=== PATIENT | male | born 1965 | race Caucasian/White ===

== ENCOUNTER 2020-05-13 16:47 | Emergency (ER) | payer MEDICARE, MEDICAID, SELFPAY ==
[2020-05-13 16:50] VITALS: PULSE 103; RESP 20; TEMP 36.9; O2SAT 97
[2020-05-13 17:01] VITALS: BP 132/74; PULSE 98; PULSE 99; RESP 18; O2SAT 96
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
[2020-05-13] MEDS: HYDROcodone-acetaminophen 7.5-325 mg Tablet 1 TAB PO (17:42)
[2020-05-13 19:26] VITALS: BP 135/64; PULSE 86; RESP 18; O2SAT 97
== END 2020-05-13 19:27 | disposition home or self-care (01) ==
PROVIDERS: Emergency Provider Physician Assistant; PCP Registered Nurse
DX: S16.1XXA Strain of muscle, fascia and tendon at neck level, initial encounter (principal); Z79.82 Long term (current) use of aspirin; Y04.8XXA Assault by other bodily force, initial encounter
CPT/HCPCS: 12345; 72125; 99281; 99283

== ENCOUNTER 2021-08-22 09:46 | Emergency (ER) | payer MEDICARE, MEDICAID, SELFPAY ==
--- NOTE | 2021-08-22 09:52 | W.ED.CHESTPA ---
HPI - Chest Pain General: Chief Complaint: Chest Pain Stated Complaint: CHEST PAIN Time Seen by Provider: 08/22/21 09:52 Source: patient Mode of arrival: ambulatory History of Present Illness: 56-year-old male presents emergency room complaining of chest pain. Pain is reproducible and patient takes a deep breath or coughs or uses his left arm to push himself such as when he sits from lying down. He has not had any fever sweats chills is not having productive cough no shortness of breath. MD complaint: chest pain Onset (ago): day(s) (5) Timing of current episode: episodic Onset: other (coughing) Pain location: left chest Pain radiation: none Severity: mild Quality: sharp Relieving factors: nothing Exacerbating factors: other (Pain is worse when he pushes with his left arm) Associated symptoms: Deny abdominal pain, diaphoresis, dyspnea, fever(s), leg edema, nausea, palpitations, sense of impending doom, syncope or vomiting Treatment prior to arrival: none Risk Factors: Coronary artery disease risk factors: smoking history Review of Systems Const: Denies: fever(s), chills, body aches or diaphoresis ENMT: Denies: throat pain, ear or mastoid pain, nasal discharge or nasal congestion Card: Reports: chest pain; Denies: palpitations, irregular heart rhythm, edema or syncope Resp: Denies: dyspnea or productive cough GI: Denies: abdominal pain, nausea or vomiting : Denies: flank pain, difficulty urinating, dysuria, urinary frequency or urinary urgency Musc: Denies: neck pain Skin/Breast: Denies: rash or pruritus PFS ED PFSH: Medical History (Updated 08/22/21 @ 12:23 by Shan Teixeira DO) No pertinent past medical history Surgical History (Updated 08/22/21 @ 12:23 by Shan Teixeira DO) No pertinent past surgical history Social History (Updated 08/22/21 @ 12:24 by Shan Teixeira DO) Smoking and tobacco status: former smoker Physical Exam Const: COMMON NORMALS: no acute distress GENERAL APPEARANCE: cooperative and comfortable ORIENTATION/CONSCIOUSNESS: Yes awake, Yes oriented to person, Yes oriented to place and Yes oriented to time HENMT: COMMON NORMALS: normocephalic, atraumatic and hearing grossly normal bilaterally HEAD & SCALP: normocephalic and atraumatic Neck/C-Spine: COMMON NORMALS: no JVD Resp: COMMON NORMALS: normal respiratory effort, No retractions, No use of accessory muscles and clear to auscultation bilaterally AUSCULTATION: clear to auscultation bilaterally Cardio: COMMON NORMALS: no JVD, regular rate, regular rhythm and No murmurs present (Cardio) RATE: regular rate RHYTHM: regular rhythm GI: COMMON NORMALS: Soft to palpation and No hepatosplenomegaly present AUSCULTATION: Yes normoactive bowel sounds PALPATION: Yes Soft to palpation, No Tenderness to palpation present (GI), No Guarding due to palpation present (GI) and Yes No hepatosplenomegaly present Extremity: COMMON NORMALS: normal to inspection, capillary refill normal, no clubbing, cyanosis or edema, no calf tenderness and no pedal edema Neuro: SENSORIUM/ORIENTATION: Yes oriented to person, Yes oriented to place and Yes oriented to time Skin: COMMON NORMALS: no rashes or lesions noted GENERAL SKIN EXAM: no rashes or lesions noted Course Vital Signs: Vital signs: Vital Signs Temperature 98.2 F 08/22/21 10:23 Pulse Rate 67 08/22/21 11:26 Respiratory Rate 16 08/22/21 10:23 Blood Pressure 137/94 08/22/21 11:26 Pulse Oximetry 97 08/22/21 11:26 MDM - Chest Pain Medical Decision Making EKG shows no acute ST and T changes. Patient symptoms for 5 days troponin is normal pain is reproducible noncardiac characteristic by history. [place] discharge him home set him up for outpatient follow-up stress test return if has problems. Medical Records I reviewed the patient's medical records. Lab Data I reviewed the patient's lab results. : 08/22/21 10:22 08/22/21 10:22 Radiology Impressions Chest X-Ray 08/22/21 09:53 Impression: Negative chest. Laboratory Results WBC 9.0 10^3/uL (4.0-10.0) 08/22/21 10:22 RBC 5.02 10^6/uL (4.1-5.3) 08/22/21 10:22 Hgb 15.9 g/dL (11.7-16.6) 08/22/21 10: Hct 47.4 % (42.0-52.0) 08/22/21 10:22 MCV 94.4 fl (80-94) H 08/22/21 10:22 MCH 31.7 pg (28.0-34.0) 08/22/21 10: MCHC 33.5 g/dL (30.0-36.0) 08/22/21 10: RDW 12.9 % (12.1-15.1) 08/22/21 10:22 Plt Count 230 10^3/cmm (130-400) 08/22/21 10:22 MPV 10.1 fL (7.4-10.4) 08/22/21 10: Neut % (Auto) 71.6 % 08/22/21 10: Lymph % (Auto) 22.5 % 08/22/21 10: [place] % (Auto) 4.7 % 08/22/21 10:22 Eos % (Auto) 0.8 % 08/22/21 10: Baso % (Auto) 0.2 % 08/22/21 10:22 Neut # (Auto) 6.42 10^3/uL (1.8-7.7) 08/22/21 10:22 Lymph # (Auto) 2.0 10^3/uL (0.8-4.8) 08/22/21 10: [place] # (Auto) 0.4 10^3/uL (0.2-0.9) 08/22/21 10: Eos # (Auto) 0.1 10^3/uL (0.0-0.8) 08/22/21 10:22 Baso # (Auto) 0.0 10^3/uL (0.0-0.1) 08/22/21 10:22 Nucleated RBC % (auto) 0 % 08/22/21 10: Nucleated RBCs # 0.0 /100WBC 08/22/21 10:22 Sodium 137 mmol/L (136-145) 08/22/21 10:22 Potassium 4.3 mmol/L (3.5-5.1) 08/22/21 10: Chloride 100 mmol/L (98-107) 08/22/21 10: Carbon Dioxide 26 mmol/L (22-29) 08/22/21 10:22 Anion Gap 15.3 (5-19) 08/22/21 10:22 BUN 14 mg/dL (6-20) 08/22/21 10:22 Creatinine 0.8 mg/dL (0.7-1.2) 08/22/21 10:22 GFR Calculation 100.7 mL/min (90-130) 08/22/21 10:22 Glucose 119 mg/dL (65-115) H 08/22/21 10:22 Calculated Osmolality 286 mOsm/kg (285-295) 08/22/21 10:22 Calcium 8.9 mg/dL (8.5-10.5) 08/22/21 10: Total Bilirubin 0.2 mg/dL (0.15-1.2) 08/22/21 10: AST 15 U/L (0-40) 08/22/21 10: ALT 14 U/L (0-41) 08/22/21 10:22 Alkaline Phosphatase 121 IU/L (40-130) 08/22/21 10:22 Troponin T Baseline 6 ng/L (0-15) 08/22/21 10:22 Total Protein 7.3 g/dL (6.6-8.7) 08/22/21 10: Albumin 4.2 g/dL (3.5-5.2) 08/22/21 10: Globulin 3.1 g/dL (1.3-4.6) 08/22/21 10:22 Discharge Plan Discharge Clinical Impression: Acute chest wall pain Prescriptions: No Action cyclobenzaprine 10 mg tablet 10 mg PO TID PRN (Reason: muscle spasms) 0RF venlafaxine 75 mg capsule,extended release 24hr 225 mg PO DAILY@1800 0RF gabapentin 600 mg tablet 600 mg PO TID@0900,1200,1800 0RF aspirin 325 mg Tablet 650 mg PO Q4H PRN (Reason: Pain) 0RF ibuprofen 800 mg tablet 800 mg PO Q6H PRN (Reason: Pain) 0RF quetiapine 200 mg tablet 400 mg PO DAILY@0000 0RF ibuprofen 800 mg tablet 800 mg PO Q8H PRN (Reason: pain) Qty: 20 0RF methocarbamol 750 mg tablet 750 mg PO Q8H Qty: 20 0RF Discharge Orders: Discharge ED (Routine); Ordered 08/22/21 Ordered By: Shan Teixeira Referrals: Gris Fuentes FNP [Referring] - Discharge Diet: Usual diet Discharge Activity: Increase activity as tolerated Patient Instructions: Opioid Safety Activity Restrictions/Additional Instructions: Case management will call make arrangements for you to have follow-up stress test as an outpatient. Continue aspirin daily. Coding Level of Care Code ED Neonatal Icu Coordinator for Letty Peña
--- NOTE | 2021-08-22 09:53 | XR_ITS ---
WS: [id number] Portable AP upright chest, 08/22/2021 Clinical Data: dyspnea/cough Comparison: Portable chest, 05/26/2016. Findings: No nodules, masses or effusions are seen. The heart is normal. The pulmonary vascularity is not increased. No pneumonia or pneumothorax is seen. The distal right clavicle is absent. XR/XR chest 1V portable [id number] Impression: Negative chest.
--- NOTE | 2021-08-22 09:53 | ECG_ITS ---
[facility] Test Date: 2021-08-22 Pat Name: Hosea Lynne Department: Room: Gender: Male Loom Blower: : 1965 Requested By: Shan Hutchinson Order Number: [id number] Claribel MD: Tk Galdamez M.D. Measurements Intervals [place] Rate: 62 P: 58 TN: 172 QRS: 9 QRSD: 92 T: 47 QT: 373 QTc: 379 Interpretive Statements SINUS RHYTHM SEPTAL MYOCARDIAL INFARCTION , OF INDETERMINATE AGE [40+ ms Q WAVE IN V1/V2] No previous ECG available for comparison Electronically Signed On 08-22-2021 22:06:14 CDT by Tk Galdamez M.D. [id number]
[2021-08-22 09:55] VITALS: BP 137/82; PULSE 69; RESP 16; TEMP 36.8; O2SAT 96; BMI 23.6
[2021-08-22 10:23] VITALS: BP 137/82; PULSE 69; RESP 16; TEMP 36.8; O2SAT 96
[2021-08-22 10:34] LABS: Basophils % 0.2 %; Eosinophils # 0.1 10^3/uL (0.0-0.8); Eosinophils % 0.8 %; Hematocrit 47.4 % (42.0-52.0); Hemoglobin 15.9 g/dL (11.7-16.6); Lymphocytes % 22.5 %; Mean Corpuscular HGB Conc 33.5 g/dL (30.0-36.0); Mean Corpuscular Hemoglobin 31.7 pg (28.0-34.0); Mean Corpuscular Volume 94.4 fl (80-94); Mean Platelet Volume 10.1 fL (7.4-10.4); Monocytes # 0.4 10^3/uL (0.2-0.9); Monocytes % 4.7 %; Neutrophils # 6.42 10^3/uL (1.8-7.7); Neutrophils % 71.6 %; Nucleated Red Blood Cells % 0 %; Platelet Count 230 10^3/cmm (130-400); Red Blood Count 5.02 10^6/uL (4.1-5.3); Red Cell Distribution Width 12.9 % (12.1-15.1)
[2021-08-22 10:49] LABS: Troponin(5th) Baseline 6 ng/L (0-15)
[2021-08-22 10:51] LABS: Alanine Aminotransferase 14 U/L (0-41); Albumin Level 4.2 g/dL (3.5-5.2); Alkaline Phosphatase 121 IU/L (40-130); Anion Gap 15.3 (5-19); Aspartate Amino Transferase 15 U/L (0-40); Blood Urea Nitrogen 14 mg/dL (6-20); Calcium 8.9 mg/dL (8.5-10.5); Carbon Dioxide 26 mmol/L (22-29); Chloride 100 mmol/L (98-107); Globulin 3.1 g/dL (1.3-4.6); Glomerular Filtration Rate 100.7 mL/min (90-130); Glucose 119 mg/dL (65-115); Osmolality Calculated 286 mOsm/kg (285-295); Potassium 4.3 mmol/L (3.5-5.1); Sodium 137 mmol/L (136-145); Total Bilirubin 0.2 mg/dL (0.15-1.2); Total Protein 7.3 g/dL (6.6-8.7)
[2021-08-22 11:26] VITALS: BP 137/94; PULSE 67; O2SAT 97
== END 2021-08-22 11:28 | disposition home or self-care (01) ==
PROVIDERS: Emergency Provider Family Medicine
DX: R07.89 Other chest pain (principal)
CPT/HCPCS: 71045; 80053; 84484; 85025; 93005; 99283

== ENCOUNTER 2021-09-29 11:22 | Emergency (ER) | payer MEDICARE, MEDICAID, SELFPAY ==
[2021-09-29 11:27] VITALS: BP 131/80; PULSE 80; RESP 14; TEMP 36.7; O2SAT 98; BMI 23.6
--- NOTE | 2021-09-29 11:46 | XRR_ITS ---
PROCEDURE INFORMATION: Exam: XR Left Elbow Exam date and time: 09/29/2021 11:55 AM Age: 56 years old Clinical indication: Injury or trauma; Other: Mirror fell on elbow; Laceration; Left; Injury date: 09/28/21; Injury details: Had a glass mirror fall onto elbow last pm; Additional info: Laceration/glass TECHNIQUE: Imaging protocol: XR Left elbow. Views: 3 or more views. Total images: 3 COMPARISON: No relevant prior studies available. FINDINGS: Bones/joints: Normal. Soft tissues: Normal. XR/XR elbow LT min 3V* [id number] IMPRESSION: No acute findings.
--- NOTE | 2021-09-29 11:47 | ED_ITS ---
HPI - Wound/Laceration General: Chief Complaint: Extremity Injury, Upper Stated Complaint: injury to left arm Time Seen by Provider: 09/29/21 11:26 Source: patient Mode of arrival: ambulatory Limitations: no limitations History of Present Illness: Patient is a nice 56-year-old male who presents to ED today with a complaint of a laceration to his left forearm/elbow region. Patient states he was moving a heavy mirrored cabinet yesterday when one of the mirrored shelves fell and landed onto his left arm and lacerated it. Patient denies numbness, tingling, loss of sensation. He states the glass did break but has a low suspicion for retained glass foreign bodies. Tetanus is UTD. Onset (ago): hour(s) Extremity Location: Left: elbow Place: home Patient tetanus UTD: Yes Context: accidental Associated symptoms: Reports no associated symptoms Review of Systems Musc: Reports: extremity pain (L arm/elbow laceration); Denies: extremity swelling, joint pain, joint swelling, joint redness, joint warmth or limited range of motion Skin/Breast: Reports: other (laceration) Neuro: Denies: numbness in extremities or sensory changes [facility] ED PFSH: Medical History (Updated 09/29/21 @ 12:19 by TATO Goss) No pertinent past medical history Surgical History (Updated 08/22/21 @ 12:23 by Shan Teixeira DO) No pertinent past surgical history Social History (Updated 08/22/21 @ 12:24 by Shan Teixeira DO) Smoking and tobacco status: former smoker Physical Exam Const: COMMON NORMALS: no acute distress, patient oriented x3, no limitations, alert and well nourished Extremity: COMMON NORMALS: full ROM, capillary refill normal, no joint enlargement, no clubbing, cyanosis or edema and no pedal edema GENERAL: Yes normal exam except as noted LEFT UPPER EXTREMITY: Yes elbow joint (2cm laceration overlying volar L elbow; no swelling/bleeding) Left elbow: Yes ROM (normal) and Yes neurovascular exam (normal) Neuro: COMMON NORMALS: patient oriented x3, moves all extremities, no focal motor deficits and no sensory deficits noted SENSORIUM/ORIENTATION: Yes alert Skin: NARRATIVE SKIN EXAM: see extremity exam-otherwise normal skin exam Procedures Laceration Laceration 1: Site: upper extremity Side (If applicable): left Size (cm): 2.0 Description: linear Depth: simple, single layer Local Anesthetic: lidocaine 1% and with epi Amount of anesthesia used (mL): 3.0 Pre-repair: wound explored and irrigated extensively Skin layer closed with: nylon Size (cm): 4-0 Number of sutures: 2 Technique: simple, interrupted Course Vital Signs: Vital signs: Vital Signs Temperature 98.0 F 09/29/21 11:27 Pulse Rate 80 09/29/21 11:27 Respiratory Rate 14 09/29/21 11:27 Blood Pressure 131/80 09/29/21 11:27 Pulse Oximetry 98 09/29/21 11:27 MDM - Wound/Laceration Medical Decision Making XR negative for fbs. Wound repaired as documented. No evidence of nerve or vascular compromise. Laceration/wound care discussed at home including return to ED precautions. Lab Data Radiology Impressions Elbow X-Ray 09/29/21 11:46 IMPRESSION: No acute findings. Discharge Plan Discharge Patient Disposition: Home Clinical Impression: Laceration of left forearm Qualifiers: Encounter type: initial encounter Qualified Code(s): S51.812A - Laceration without foreign body of left forearm, initial encounter Condition: Stable Prescriptions: No Action cyclobenzaprine 10 mg tablet 10 mg PO TID PRN (Reason: muscle spasms) 0RF venlafaxine 75 mg capsule,extended release 24hr 225 mg PO DAILY@1800 0RF gabapentin 600 mg tablet 600 mg PO TID@0900,1200,1800 0RF aspirin 325 mg Tablet 650 mg PO Q4H PRN (Reason: Pain) 0RF ibuprofen 800 mg tablet 800 mg PO Q6H PRN (Reason: Pain) 0RF quetiapine 200 mg tablet 400 mg PO DAILY@0000 0RF ibuprofen 800 mg tablet 800 mg PO Q8H PRN (Reason: pain) Qty: 20 0RF methocarbamol 750 mg tablet 750 mg PO Q8H Qty: 20 0RF Discharge Orders: Discharge ED (Routine); Ordered 09/29/21 Ordered By: Lizzy Tomas Patient Instructions: Care For Your Stitches (DC), Laceration (DC) Activity Restrictions/Additional Instructions: Keep wound/laceration clean with warm soap and water twice daily. Monitor for signs of infection such as redness, swelling, increased pain, or drainage. Please seek medical re-evaluation if these occur. If you received sutures today these will need to be removed (unless you were told by the provider that they are absorbable). The provider should have discussed with you the length of time until removal-7 DAYS. You may return to the emergency department for this service. Coding Level of Care Code ED Fbi Sharpshooter for Letty Peña
== END 2021-09-29 12:34 | disposition home or self-care (01) ==
PROVIDERS: Emergency Provider Physician Assistant
DX: S51.812A Laceration without foreign body of left forearm, initial encounter (principal); W20.8XXA Other cause of strike by thrown, projected or falling object, initial encounter
CPT/HCPCS: 12001; 73080

== ENCOUNTER 2021-12-02 15:22 | Inpatient (IN) | payer MEDICARE, MEDICAID, SELFPAY ==
[2021-12-02 15:25] VITALS: BP 138/89; PULSE 78; RESP 16; TEMP 36.4; O2SAT 96
--- NOTE | 2021-12-02 15:36 | W.ED.ABDPA2 ---
Documented by User: TATO Willams 12/03/21 00:01 HPI - Abdominal Pain General: Chief Complaint: Abdominal Pain Stated Complaint: R flank pain Time Seen by Provider: 12/02/21 15:31 History of Present Illness: Patient is a 56-year-old male comes to the ED with right flank pain. Patient endorses having chronic right flank pain for the past 6 years. Over the past 2 weeks the pain has progressed and gotten more severe. He currently rates the pain a 5 out of 10. Denies any worsening or improving factors. Denies any history of kidney stones. Denies any fever, chills, nausea/vomiting, bladder or bowel symptoms. Patient does endorse having dark urine and feels dehydrated. Patient has a past medical history of bipolar disorder but is not currently taking any of his meds. He told the nurse that he is currently suicidal and wants to hurt himself. He stated that he does not want to live anymore. he is paranoid about police and one of his neighbors and states that his neighbor is out to get him. Associated Symptoms: Denies chills, constipation, diarrhea, dysuria, fever(s), hematochezia, hematuria, nausea and vomiting Review of Systems Const: Denies: fever(s), chills or fatigue Eyes: Denies: change in vision or eye discomfort ENMT: Denies: throat pain, odynophagia, nasal discharge or nasal congestion Card: Denies: chest pain, palpitations, edema, swelling of feet/ankles, dyspnea on exertion or orthopnea Resp: Denies: dyspnea, productive cough or non-productive cough GI: Denies: abdominal pain, nausea, vomiting, diarrhea, constipation or hematochezia : Reports: flank pain (Right flank); Denies: difficulty urinating, dysuria or hematuria Musc: Denies: neck pain, back pain or extremity swelling Skin/Breast: Denies: rash or new lesions Neuro: Denies: headache(s), numbness in extremities or weakness in extremities PFS ED PFSH: Medical History No pertinent past medical history Surgical History No pertinent past surgical history Social History Smoking and tobacco status: former smoker Physical Exam Const: COMMON NORMALS: patient oriented x3 and alert GENERAL APPEARANCE: cooperative HENMT: COMMON NORMALS: normocephalic HEAD & SCALP: normocephalic MOUTH: Normal oral and palatal mucosa present THROAT: posterior oropharynx normal and uvula midline Neck/C-Spine: COMMON NORMALS: supple GENERAL: Yes normal visual inspection Resp: COMMON NORMALS: normal respiratory effort, No retractions, No use of accessory muscles and clear to auscultation bilaterally AUSCULTATION: clear to auscultation bilaterally Cardio: COMMON NORMALS: regular rate, regular rhythm, S1 normal heart sound present, S2 normal heart sound present, No gallops present (Cardio), No clicks present (Cardio), No murmurs present (Cardio) and Peripheral pulses 2+ throughout RATE: regular rate RHYTHM: regular rhythm HEART SOUNDS: S1 normal heart sound present and S2 normal heart sound present PERIPHERAL PULSES: Peripheral pulses 2+ throughout GI: COMMON NORMALS: Normal to inspection, nondistended, normoactive bowel sounds present, Soft to palpation, non-tender and no masses PALPATION: Yes Soft to palpation and Yes Tenderness to palpation present (GI) Details: RUQ : BLADDER/KIDNEY EXAM: Yes CVA tenderness on the right Back/Pelvis: GENERAL BACK: Yes CVA tenderness Extremity: COMMON NORMALS: normal to inspection Neuro: COMMON NORMALS: patient oriented x3 SENSORIUM/ORIENTATION: Yes alert GAIT: Yes Normal gait present Skin: GENERAL SKIN EXAM: dry skin Course ED course: Patient mentioned that he did not want to live anymore to nurse and he was then moved into his own room here in the ED and patient primary care nurse practitioner was monitoring patient. Vital Signs: Vital signs: Vital Signs Temperature 98.2 F 12/12/21 13:05 Pulse Rate 69 12/12/21 13:05 Respiratory Rate 16 12/12/21 13:05 Blood Pressure 119/78 12/12/21 13:05 Pulse Oximetry 97 12/12/21 13:05 Oxygen Delivery Me thod 12/12/21 06:00 MDM - Abdominal Pain Medical Decision Making Patient is a 56-year-old male comes to the ED originally for right flank and right-sided abdominal pain. CBC, CMP and UA were all unremarkable. CT of abdomen pelvis and no acute findings were noted. While here in the ED patient said that he was having thoughts of suicide and said he did not want to live anymore. Patient has a history of bipolar disorder and is not currently taking any of his medications. He also reports pain paranoid about one of his neighbors and the local police. Psych screening labs were performed and I contacted Dr. Beckham and told him about patient case and he agreed to have patient admitted to the [facility]. Dr. Mcclain was notified and placed the admitting orders. Lab Data I reviewed the patient's lab results. : 12/02/21 16:00 12/02/21 16:00 Labs/Radiology: Radiology Impressions Abdomen/Pelvis CT 12/02/21 17:49 IMPRESSION: 1. Limited noncontrast examination. 2. Mild circumferential urinary bladder wall thickening, possibly secondary to underdistention. Correlate with urinalysis to exclude cystitis. 3. Additional findings, as above. Laboratory Results WBC 8.4 10^3/uL (4.0-10.0) 12/02/21 16:00 RBC 4.87 10^6/uL (4.1-5.3) 12/02/21 16:00 Hgb 15.7 g/dL (11.7-16.6) 12/02/21 16:00 Hct 46.9 % (42.0-52.0) 12/02/21 16:00 MCV 96.3 fl (80-94) H 12/02/21 16:00 MCH 32.2 pg (28.0-34.0) 12/02/21 16:00 MCHC 33.5 g/dL (30.0-36.0) 12/02/21 16:00 RDW 13.4 % (12.1-15.1) 12/02/21 16:00 Plt Count 249 10^3/cmm (130-400) 12/02/21 16:00 MPV 9.9 fL (7.4-10.4) 12/02/21 16:00 Neut % (Auto) 64.6 % 12/02/21 16:00 Lymph % (Auto) 26.8 % 12/02/21 16:00 [place] % (Auto) 7.0 % 12/02/21 16:00 Eos % (Auto) 1.3 % 12/02/21 16:00 Baso % (Auto) 0.2 % 12/02/21 16:00 Neut # (Auto) 5.45 10^3/uL (1.8-7.7) 12/02/21 16:00 Lymph # (Auto) 2.3 10^3/uL (0.8-4.8) 12/02/21 16:00 [place] # (Auto) 0.6 10^3/uL (0.2-0.9) 12/02/21 16:00 Eos # (Auto) 0.1 10^3/uL (0.0-0.8) 12/02/21 16:00 Baso # (Auto) 0.0 10^3/uL (0.0-0.1) 12/02/21 16:00 Nucleated RBC % (auto) 0 % 12/02/21 16:00 Nucleated RBCs # 0.0 /100WBC 12/02/21 16:00 Sodium 139 mmol/L (136-145) 12/02/21 16:00 Potassium 4.3 mmol/L (3.5-5.1) 12/02/21 16:00 Chloride 103 mmol/L (98-107) 12/02/21 16:00 Carbon Dioxide 27 mmol/L (22-29) 12/02/21 16:00 Anion Gap 13.3 (5-19) 12/02/21 16:00 BUN 9 mg/dL (6-20) 12/02/21 16:00 Creatinine 0.7 mg/dL (0.7-1.2) 12/02/21 16:00 GFR Calculation 117.5 mL/min (90-130) 12/02/21 16:00 Glucose 95 mg/dL (65-115) 12/02/21 16:00 Calculated Osmolality 286 mOsm/kg (285-295) 12/02/21 16:00 Calcium 9.5 mg/dL (8.5-10.5) 12/02/21 16:00 Total Bilirubin 0.3 mg/dL (0.15-1.2) 12/02/21 16:00 AST 13 U/L (0-40) 12/02/21 16:00 ALT 9 U/L (0-41) 12/02/21 16:00 Alkaline Phosphatase 118 IU/L (40-130) 12/02/21 16:00 Total Protein 7.1 g/dL (6.6-8.7) 12/02/21 16:00 Albumin 4.3 g/dL (3.5-5.2) 12/02/21 16:00 Globulin 2.8 g/dL (1.3-4.6) 12/02/21 16:00 Lipase 31 U/L (13-60) 12/02/21 16:00 Urine Color Yellow (Yellow) 12/02/21 17:05 Urine Appearance Clear (CLEAR) 12/02/21 17:05 Urine pH 7 (5-7) 12/02/21 17:05 Ur Specific [place] 1.010 (1.005-1.030) 12/02/21 17:05 Urine Protein Neg (Negative) 12/02/21 17:05 Urine Glucose (UA) Norm (Normal) 12/02/21 17:05 Urine Ketones Negative (Negative) 12/02/21 17:05 Urine Blood Neg (Negative) 12/02/21 17:05 Urine Nitrate Negative (Negative) 12/02/21 17:05 Urine Bilirubin Neg (Negative) 12/02/21 17:05 Urine Urobilinogen Norm mg/dL (Negative) 12/02/21 17:05 Ur Leukocyte Esterase Negative (Negative) 12/02/21 17:05 Salicylates < 0.3 mg/dL (3-10) L 12/02/21 16:00 Urine Opiates Screen Positive ng/mL (Negative) H 12/02/21 17:05 Acetaminophen < 5.0 ug/mL (10-30) L 12/02/21 16:00 Ur Barbiturates Screen Negative ng/mL (Negative) 12/02/21 17:05 Ur Phencyclidine Scrn Negative ng/mL (Negative) 12/02/21 17:05 Ur Amphetamines Screen Negative ng/mL (Negative) 12/02/21 17:05 U Benzodiazepines Scrn Negative ng/mL (Negative) 12/02/21 17:05 Urine Cocaine Screen Negative ng/mL (Negative) 12/02/21 17:05 U Marijuana (THC) Screen Negative ng/mL (Negative) 12/02/21 17:05 Ethyl Alcohol < 10 mg/dL (0-10) 12/02/21 16:00 Discharge Plan Discharge Patient Disposition: Admitted As Inpatient Admit Provider: Preston Beckham Clinical Impression: Suicidal ideation Condition: Stable Discharge Diet: Regular Discharge Activity: Resume usual activity Coding Level of Care Code ED A And P Technician for Chg Fwd Exam Comprehensive Documented by User: Nacho Mcclain MD 12/13/21 01:53 HPI - Abdominal Pain General: Chief Complaint: Abdominal Pain Stated Complaint: R flank pain Time Seen by Provider: 12/02/21 15:31 [facility] ED PFSH: Medical History No pertinent past medical history Surgical History No pertinent past surgical history Social History Smoking and tobacco status: former smoker Course Vital Signs: Vital signs: Vital Signs Temperature 98.2 F 12/12/21 13:05 Pulse Rate 69 12/12/21 13:05 Respiratory Rate 16 12/12/21 13:05 Blood Pressure 119/78 12/12/21 13:05 Pulse Oximetry 97 12/12/21 13:05 Oxygen Delivery Me thod 12/12/21 06:00 MDM - Abdominal Pain Medical Decision Making Patient is a 56-year-old male comes to the ED originally for right flank and right-sided abdominal pain. CBC, CMP and UA were all unremarkable. CT of abdomen pelvis and no acute findings were noted. While here in the ED patient said that he was having thoughts of suicide and said he did not want to live anymore. Patient has a history of bipolar disorder and is not currently taking any of his medications. He also reports pain paranoid about one of his neighbors and the local police. Psych screening labs were performed and I contacted Dr. Beckham and told him about patient case and he agreed to have patient admitted to the N[facility]. Dr. Mcclain was notified and placed the admitting orders. I discussed this case with TATO Willams. I reviewed documentation, laboratory studies, and imaging. Nacho Mcclain MD Emergency Medicine Lab Data : 12/02/21 16:00 12/02/21 16:00 Labs/Radiology: Radiology Impressions Abdomen/Pelvis CT 12/02/21 17:49 IMPRESSION: 1. Limited noncontrast examination. 2. Mild circumferential urinary bladder wall thickening, possibly secondary to underdistention. Correlate with urinalysis to exclude cystitis. 3. Additional findings, as above. Laboratory Results WBC 8.4 10^3/uL (4.0-10.0) 12/02/21 16:00 RBC 4.87 10^6/uL (4.1-5.3) 12/02/21 16:00 Hgb 15.7 g/dL (11.7-16.6) 12/02/21 16:00 Hct 46.9 % (42.0-52.0) 12/02/21 16:00 MCV 96.3 fl (80-94) H 12/02/21 16:00 MCH 32.2 pg (28.0-34.0) 12/02/21 16:00 MCHC 33.5 g/dL (30.0-36.0) 12/02/21 16:00 RDW 13.4 % (12.1-15.1) 12/02/21 16:00 Plt Count 249 10^3/cmm (130-400) 12/02/21 16:00 MPV 9.9 fL (7.4-10.4) 12/02/21 16:00 Neut % (Auto) 64.6 % 12/02/21 16:00 Lymph % (Auto) 26.8 % 12/02/21 16:00 [place] % (Auto) 7.0 % 12/02/21 16:00 Eos % (Auto) 1.3 % 12/02/21 16:00 Baso % (Auto) 0.2 % 12/02/21 16:00 Neut # (Auto) 5.45 10^3/uL (1.8-7.7) 12/02/21 16:00 Lymph # (Auto) 2.3 10^3/uL (0.8-4.8) 12/02/21 16:00 [place] # (Auto) 0.6 10^3/uL (0.2-0.9) 12/02/21 16:00 Eos # (Auto) 0.1 10^3/uL (0.0-0.8) 12/02/21 16:00 Baso # (Auto) 0.0 10^3/uL (0.0-0.1) 12/02/21 16:00 Nucleated RBC % (auto) 0 % 12/02/21 16:00 Nucleated RBCs # 0.0 /100WBC 12/02/21 16:00 Sodium 139 mmol/L (136-145) 12/02/21 16:00 Potassium 4.3 mmol/L (3.5-5.1) 12/02/21 16:00 Chloride 103 mmol/L (98-107) 12/02/21 16:00 Carbon Dioxide 27 mmol/L (22-29) 12/02/21 16:00 Anion Gap 13.3 (5-19) 12/02/21 16:00 BUN 9 mg/dL (6-20) 12/02/21 16:00 Creatinine 0.7 mg/dL (0.7-1.2) 12/02/21 16:00 GFR Calculation 117.5 mL/min (90-130) 12/02/21 16:00 Glucose 95 mg/dL (65-115) 12/02/21 16:00 Calculated Osmolality 286 mOsm/kg (285-295) 12/02/21 16:00 Calcium 9.5 mg/dL (8.5-10.5) 12/02/21 16:00 Total Bilirubin 0.3 mg/dL (0.15-1.2) 12/02/21 16:00 AST 13 U/L (0-40) 12/02/21 16:00 ALT 9 U/L (0-41) 12/02/21 16:00 Alkaline Phosphatase 118 IU/L (40-130) 12/02/21 16:00 Total Protein 7.1 g/dL (6.6-8.7) 12/02/21 16:00 Albumin 4.3 g/dL (3.5-5.2) 12/02/21 16:00 Globulin 2.8 g/dL (1.3-4.6) 12/02/21 16:00 Lipase 31 U/L (13-60) 12/02/21 16:00 Urine Color Yellow (Yellow) 12/02/21 17:05 Urine Appearance Clear (CLEAR) 12/02/21 17:05 Urine pH 7 (5-7) 12/02/21 17:05 Ur Specific [place] 1.010 (1.005-1.030) 12/02/21 17:05 Urine Protein Neg (Negative) 12/02/21 17:05 Urine Glucose (UA) Norm (Normal) 12/02/21 17:05 Urine Ketones Negative (Negative) 12/02/21 17:05 Urine Blood Neg (Negative) 12/02/21 17:05 Urine Nitrate Negative (Negative) 12/02/21 17:05 Urine Bilirubin Neg (Negative) 12/02/21 17:05 Urine Urobilinogen Norm mg/dL (Negative) 12/02/21 17:05 Ur Leukocyte Esterase Negative (Negative) 12/02/21 17:05 Salicylates < 0.3 mg/dL (3-10) L 12/02/21 16:00 Urine Opiates Screen Positive ng/mL (Negative) H 12/02/21 17:05 Acetaminophen < 5.0 ug/mL (10-30) L 12/02/21 16:00 Ur Barbiturates Screen Negative ng/mL (Negative) 12/02/21 17:05 Ur Phencyclidine Scrn Negative ng/mL (Negative) 12/02/21 17:05 Ur Amphetamines Screen Negative ng/mL (Negative) 12/02/21 17:05 U Benzodiazepines Scrn Negative ng/mL (Negative) 12/02/21 17:05 Urine Cocaine Screen Negative ng/mL (Negative) 12/02/21 17:05 U Marijuana (THC) Screen Negative ng/mL (Negative) 12/02/21 17:05 Ethyl Alcohol < 10 mg/dL (0-10) 12/02/21 16:00 Discharge Plan Discharge Patient Disposition: Admitted As Inpatient Admit Provider: Preston Beckham Clinical Impression: Suicidal ideation Condition: Stable Discharge Diet: Regular Discharge Activity: Resume usual activity Coding Level of Care Code ED A And P Technician for Letty Fwd Exam Comprehensive
[2021-12-02 16:20] LABS: Basophils % 0.2 %; Eosinophils # 0.1 10^3/uL (0.0-0.8); Eosinophils % 1.3 %; Hematocrit 46.9 % (42.0-52.0); Hemoglobin 15.7 g/dL (11.7-16.6); Lymphocytes # 2.3 10^3/uL (0.8-4.8); Lymphocytes % 26.8 %; Mean Corpuscular HGB Conc 33.5 g/dL (30.0-36.0); Mean Corpuscular Hemoglobin 32.2 pg (28.0-34.0); Mean Corpuscular Volume 96.3 fl (80-94); Mean Platelet Volume 9.9 fL (7.4-10.4); Monocytes # 0.6 10^3/uL (0.2-0.9); Neutrophils # 5.45 10^3/uL (1.8-7.7); Neutrophils % 64.6 %; Nucleated Red Blood Cells % 0 %; Platelet Count 249 10^3/cmm (130-400); Red Blood Count 4.87 10^6/uL (4.1-5.3); Red Cell Distribution Width 13.4 % (12.1-15.1); White Blood Count 8.4 10^3/uL (4.0-10.0)
[2021-12-02 16:23] VITALS: RESP 14
[2021-12-02] MEDS: morphine 4 mg/mL SDV 1 mL IVP (16:23)
[2021-12-02] MEDS: ondansetron 2 mg/ML SDV 2 mL 4 MG IVP (16:23)
[2021-12-02] MEDS: sodium chloride 0.9% 1,000 ML 999 ML IV (16:26)
[2021-12-02 16:32] VITALS: BP 138/89; PULSE 78; RESP 14; TEMP 36.4; O2SAT 96
[2021-12-02 16:52] LABS: Alanine Aminotransferase 9 U/L (0-41); Albumin Level 4.3 g/dL (3.5-5.2); Alkaline Phosphatase 118 IU/L (40-130); Aspartate Amino Transferase 13 U/L (0-40); Blood Urea Nitrogen 9 mg/dL (6-20); Calcium 9.5 mg/dL (8.5-10.5); Carbon Dioxide 27 mmol/L (22-29); Chloride 103 mmol/L (98-107); Globulin 2.8 g/dL (1.3-4.6); Glomerular Filtration Rate 117.5 mL/min (90-130); Glucose 95 mg/dL (65-115); Lipase 31 U/L (13-60); Osmolality Calculated 286 mOsm/kg (285-295); Sodium 139 mmol/L (136-145); Total Bilirubin 0.3 mg/dL (0.15-1.2); Total Protein 7.1 g/dL (6.6-8.7)
[2021-12-02 17:13] LABS: Anion Gap 13.3 (5-19); Potassium 4.3 mmol/L (3.5-5.1)
[2021-12-02 17:43] LABS: Acetaminophen < 5.0 ug/mL (10-30); Alcohol Level < 10 mg/dL (0-10); Salicylate < 0.3 mg/dL (3-10)
[2021-12-02 17:44] LABS: Add Urine Microscopic? NO; Charge for UA Resulting for Rev
--- NOTE | 2021-12-02 17:49 | CTR_ITS ---
PROCEDURE INFORMATION: Exam: CT Abdomen And Pelvis Without Contrast Exam date and time: 12/02/2021 7:09 PM Age: 56 years old Clinical indication: Abdominal pain; Localized; Right lower quadrant (rlq); Additional info: Right sided abdominal pain TECHNIQUE: Imaging protocol: Computed tomography of the abdomen and pelvis without contrast. Axial, coronal and sagittal reformatted images were created and reviewed. Radiation optimization: All CT scans at this facility use at least one of these dose optimization techniques: automated exposure control; mA and/or kV adjustment per patient size (includes targeted exams where dose is matched to clinical indication); or iterative reconstruction. COMPARISON: CR XR chest 1V portable [id number] 08/22/2021 10:01 AM RADIATION DOSE METRICS: Total DLP (mGy-cm): 381.97 FINDINGS: Lungs: Minimal dependent atelectatic change at the lung bases. Liver: Unremarkable. Gallbladder and bile ducts: No radiodense gallstones. No biliary ductal dilatation. Pancreas: Unremarkable. Spleen: Unremarkable. Adrenal glands: Normal. No mass. Kidneys and ureters: No mass. No radiodense calculi. No hydronephrosis. Stomach and bowel: Moderate amount of retained stool in the colon. Colonic diverticulosis without evidence of diverticulitis. No obstruction. No bowel wall thickening. No pneumatosis. Appendix: Normal. Intraperitoneal space: No free fluid. No organized fluid collection. No free air. Vasculature: Mild atherosclerotic disease. No aneurysm. Lymph nodes: No pathologically enlarged lymph nodes. Urinary bladder: Mild circumferential urinary bladder wall thickening, possibly secondary to underdistention. Reproductive: Unremarkable. Bones/joints: No acute osseous abnormality. Osteopenia. Degenerative changes. Chronic partial L1 superior endplate compression deformity. Soft tissues: Unremarkable. CT/CT abdomen pelvis wo con [id number] IMPRESSION: 1. Limited noncontrast examination. 2. Mild circumferential urinary bladder wall thickening, possibly secondary to underdistention. Correlate with urinalysis to exclude cystitis. 3. Additional findings, as above.
[2021-12-02 17:50] LABS: Bilirubin Urine Neg (Negative); Blood Urine Neg (Negative); Glucose Urine UA Norm (Normal); Ketones Urine Negative (Negative); Leukocyte Esterase Urine Negative (Negative); Nitrate Urine Negative (Negative); Protein Urine Neg (Negative); Urine Appearance Clear (CLEAR); Urine Color Yellow (Yellow); Urobilinogen Urine Norm (Negative); pH Urine 7 (5-7)
[2021-12-02 17:55] LABS: Amphetamines Screen Urine Negative (Negative); Barbiturates Screen Urine Negative (Negative); Benzodiazepines Screen Urine Negative (Negative); Cocaine Screen Urine Negative (Negative); Opiate Screen Urine Positive (Negative); PCP Screen Urine Negative (Negative); THC Screen Urine Negative (Negative)
[2021-12-02 19:01] VITALS: BP 144/95; PULSE 52; RESP 18; O2SAT 97
--- NOTE | 2021-12-02 19:02 | PC.NURSE ---
Report gave to Lisa RN
[2021-12-02 23:17] VITALS: BP 119/86; PULSE 65; RESP 18; O2SAT 95
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
[2021-12-03 05:49] VITALS: BP 116/76; PULSE 79; RESP 18; O2SAT 94
--- NOTE | 2021-12-03 09:50 | NUR.SHIFT ---
PT PRESENTS JUAN JOSÉ BUT COOPERATIVE. EYES DOWNCAST PERIODICALLY, HANDS CLASPED IN FRONT OF WASTE OCCASSIONALLY WRINGING THEM. PT DENIES SI/HI/AVH AT THIS TIME. REPORTS GOOD APPETITE, ANXIETY 09/06 DEPRESSION 12/07. REPORTS POOR SLEEP PATTERN. REPORTS LAST BM 12/02. GOAL FOR THE DAY IS TO GET REST
[2021-12-03] MEDS: acetaminophen 325 mg Tablet 650 MG PO (13:01)
[2021-12-03 14:00] VITALS: BP 108/71; PULSE 57; RESP 16; TEMP 36.6; O2SAT 96
[2021-12-03] MEDS: hyDROXYzine 25 mg Capsule 50 MG PO (14:23)
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
[2021-12-03] MEDS: duloxetine 30 mg Capsule PO (19:52)
[2021-12-03] MEDS: hydrocortisone 1% cream 28 gm 1 APPLIC TOPICAL (20:05)
[2021-12-03 21:02] VITALS: BP 123/83; PULSE 62; RESP 18; TEMP 36.5; O2SAT 93
[2021-12-03] MEDS: quetiapine 25 mg Tablet 50 MG PO (22:52)
[2021-12-04 06:00] VITALS: BP 118/80; PULSE 72; RESP 18; TEMP 36.7; O2SAT 98
[2021-12-04] MEDS: acetaminophen 325 mg Tablet 650 MG PO (07:31)
[2021-12-04] MEDS: hyDROXYzine 25 mg Capsule 50 MG PO (07:31)
[2021-12-04] MEDS: duloxetine 30 mg Capsule PO (08:36)
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
[2021-12-04 14:00] VITALS: BP 123/80; PULSE 62; RESP 16; TEMP 36.6; O2SAT 98
[2021-12-04] MEDS: quetiapine 100 mg Tablet PO (20:43)
--- NOTE | 2021-12-04 20:44 | PC.NURSE ---
1999: Pt requested of the board writer allow him to leave AMA. When first assesed about 1930, Pt stated he had mild thoughts of self harm. Now he is denying same. He stated he talked to my neighbor who said he can come and pic me up. I need to check on my house and dogs. Dr Beckham was contacted by phone about Pt's request. He advised that if Pt was willing to stay until tomorrow so that protective services social worker to assist with his home issues. Pt was reluctant at first, then encouraged by this board writer to stay until tomorrow to see protective services social worker.
[2021-12-04 21:29] VITALS: BP 131/88; PULSE 74; RESP 18; TEMP 37.3; O2SAT 95
[2021-12-05 06:00] VITALS: BP 110/70; PULSE 77; RESP 18; TEMP 36.9; O2SAT 96
[2021-12-05] MEDS: duloxetine 60 mg Capsule PO (07:41)
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
[2021-12-05 14:00] VITALS: BP 135/81; PULSE 63; RESP 18; TEMP 36.1; O2SAT 97
[2021-12-05] MEDS: hydrocortisone 1% cream 28 gm 1 APPLIC TOPICAL (16:34)
[2021-12-05] MEDS: acetaminophen 325 mg Tablet 650 MG PO (16:56)
[2021-12-05 19:47] VITALS: BP 129/82; PULSE 60; RESP 18; TEMP 36.9; O2SAT 93
[2021-12-05] MEDS: quetiapine 100 mg Tablet 150 MG PO (19:52)
[2021-12-06 06:00] VITALS: BP 127/74; PULSE 85; RESP 16; TEMP 36.9; O2SAT 97
[2021-12-06] MEDS: duloxetine 60 mg Capsule PO (08:57)
--- NOTE | 2021-12-06 13:35 | P.NPUPN_ITS ---
Subjective NPU Subjective: Hosea is a 56-year-old white male with a history of major depressive disorder and suicidal ideation admitted with the plan to stab himself with a knife. Vocational rehabilitation evaluation had suggested that the patient may require a family preservation caseworker to visit once he returns to the community. He reports signifcant problems with his memory and continues to endorse depressed mood. He continues to report feelings of hopelessness. He reports still having thoughts of hurting himself. He denies any sleep continuity disruption last night. He does report problems with concentration. The patient had reported significant anxiety and reports that he had struggles with decision- making here and outside in his home environment. He had reported that he will likely lose his home to [facility] due to lack of payments. Mental Status Exam MSE Comments: He is a thin white male who appeared his stated age. there was clear evidence of severe psychomotor retardation. He was friendly and cooperative during the interview. There was no evidence of any abnormal tics or tremors appreciated. His mood was described as depressed. His affect was flat and restricted in range and mood-congruent. He endorsed continued suicidal ideation with a plan of falling on a knife. There was an overall sense of h opelessness. There was no evidence of homicidal ideation. He did not appear to be responding to internal stimuli. There was no clear evidence of delusional thinking. His attention span appeared poor. He was alert and oriented to person place month but and year, but not the day of the week,or the particular date. His immediate memory was poor as he was unable to process information provided just 5 minutes before. His insight was poor. His judgment appeared limited. His impulse control appeared poor. His ability to engage in abstract thinking also appeared impaired. Vitals/I&O/Wt Last Vital Signs Temp 98.1 F 12/06/21 14:00 Pulse 74 12/06/21 14:00 Resp 14 12/06/21 14:00 BP 120/76 12/06/21 14:00 Pulse Ox 97 12/06/21 14:00 O2 Del Method 12/06/21 14:00 Data NPU : 12/02/21 16:00 12/02/21 16:00 A&P Assessment and plan (1) Major depressive disorder: Status: Acute (2) Suicidal ideation: Status: Acute Plan Patient is a 56-year-old white male currently reporting severe psychosocial stressors with worsening depression since he stopped his medications and outpatient counseling. 1.? Continue Cymbalta 60mg today to target depression and anxiety. Contin ue seroquel at 150mg at night for adjunctive treatment of depression. 2.? Encourage individual, group and milieu therapy 3.? Continue q-15 minute check for safety 4. BERNARD evaluation to be ordered to access ability to live independently- through Occupational therapy, patient appears to show evidence of brain injury. 5. Patient likely to go to homeless longterm on discharge, needs active follow up with psychotherapy and psychiatrist on outpatient level. Involuntary Hold Information 96 Hour Hold: 96 Hour Involuntary Admission: No Attestations NPU Medical Necessity Statement*: Inpatient hospitalization is medically necessary and the clinically appropriate intervention at this time. We will monitor medications and make changes as indicated. Patient's likely length of stay is three to five days. Coding Level of Care Code Established Pt Acute Scalp Treatment Specialist for Pierog Fwd Patient Type Established History Problem Focused Exam Problem Focused Medical Decision Making Straight Forward Diagnoses Major depressive disorder F32.9 Suicidal ideation R45.851
[2021-12-06] MEDS: acetaminophen 325 mg Tablet 650 MG PO ×2 (13:53→20:13)
[2021-12-06 14:00] VITALS: BP 120/76; PULSE 74; RESP 14; TEMP 36.7; O2SAT 97
--- NOTE | 2021-12-06 14:08 | PC.NURSE ---
Patient given tylenol 650 mg po for c/o headache rated 7.
[2021-12-06] MEDS: quetiapine 100 mg Tablet 150 MG PO (19:53)
[2021-12-06 20:15] VITALS: BP 121/81; PULSE 65; RESP 18; TEMP 36.9; O2SAT 94
[2021-12-07 06:00] VITALS: BP 130/80; PULSE 71; RESP 18; TEMP 37; O2SAT 98
[2021-12-07] MEDS: duloxetine 60 mg Capsule PO (10:12)
[2021-12-07] MEDS: acetaminophen 325 mg Tablet 650 MG PO ×2 (11:37→21:24)
[2021-12-07 14:00] VITALS: BP 114/69; PULSE 62; RESP 16; TEMP 36.7; O2SAT 96
[2021-12-07] MEDS: hydrocortisone 1% cream 28 gm 1 APPLIC TOPICAL (14:59)
--- NOTE | 2021-12-07 15:11 | W.PM.NPUPNS ---
Subjective NPU Subjective: Hosea is a 56-year-old white male with a history of major depressive disorder and suicidal ideation admitted with the plan to stab himself with a knife. He continues to appear depressed on the milieu complaining of memory problems and reports of frequent awakenings at night. He endorses some continued suicidal thoughts and continues to appear to isolate on the unit. He continues to report low energy. He reports no hallucinations. He does report continuing to ruminate about his future. He reports that he was feeling better about returning to a [facility] when he is better. He did admit to having some continued thoughts about stabbing himself with a knife. Mental Status Exam MSE Comments: He is a thin white male who appeared his stated age. there was clear evidence of severe psychomotor retardation. He was friendly and cooperative during the interview. There was no evidence of any abnormal tics or tremors appreciated. His mood remained depressed. His affect was flat and restricted in range and mood-congruent. He endorsed continued suicidal ideation with a plan of falling on a knife. He endorsed feelings of hopelessness. There was no evidence of homicidal ideation. He did not appear to be responding to internal stimuli. There was no clear evidence of delusional thinking. His attention span appeared poor. He was alert and oriented to person place year month but not date or day of week. His immediate memory was poor as he was unable to process and recall 3 words provided just 5 minutes before. His insight was poor. His judgment appeared limited. His impulse control appeared poor. His ability to engage in abstract thinking also appeared impaired. Vitals/I&O/Wt Last Vital Signs Temp 98.6 F 12/07/21 06:00 Pulse 71 12/07/21 06:00 Resp 18 12/07/21 06:00 BP 130/80 12/07/21 06:00 Pulse Ox 98 12/07/21 06:00 O2 Del Method 12/06/21 14:00 Data NPU : 12/02/21 16:00 12/02/21 16:00 A&P Assessment and plan (1) Major depressive disorder: Status: Acute (2) Suicidal ideation: Status: Acute Plan Patient is a 56-year-old white male currently reporting severe psychosocial stressors with worsening depression since he stopped his medications and outpatient counseling. 1.? Continue Cymbalta 60mg today to target depression and anxiety. Increase seroquel to 200mg at night for adjunctive treatment of major depression. 2.? Encourage individual, group and milieu therapy 3.? Continue q-15 minute check for safety 4. BERNARD evaluation completed to access ability to live independently-through Occupational therapy, patient likely would benefit from case management services requiring help in various situations per evaluation. 5. Patient likely to go to homeless [facility] on discharge, needs active follow up with psychotherapy and psychiatrist on outpatient level. Involuntary Hold Information 96 Hour Hold: 96 Hour Involuntary Admission: No Attestations NPU Medical Necessity Statement*: Inpatient hospitalization is medically necessary and the clinically appropriate intervention at this time. We will monitor medications and make changes as indicated. Patient's likely length of stay is three to five days. Coding Level of Care Code Established Pt Acute Web Production Assistant for Letty Peña Patient Type Established History Problem Focused Exam Problem Focused Medical Decision Making Straight Forward Diagnoses Major depressive disorder F32.9 Suicidal ideation R45.853
[2021-12-07 20:42] VITALS: BP 126/84; PULSE 63; RESP 16; TEMP 36.8; O2SAT 96
[2021-12-07] MEDS: bismuth subsalicylate 240 mL Btl 15 ML PO (21:27)
[2021-12-07] MEDS: quetiapine 100 mg Tablet 200 MG PO (21:28)
--- NOTE | 2021-12-07 21:56 | PC.NURSE ---
Patient c/o headache rated a 7.Tylenol 650mg given. Pain after med given,rated a 4.
[2021-12-08 06:00] VITALS: BP 116/77; PULSE 66; RESP 16; TEMP 36.9; O2SAT 97
[2021-12-08] MEDS: simethicone 80 mg Chew PO ×2 (09:53→14:52)
[2021-12-08] MEDS: duloxetine 60 mg Capsule PO (09:54)
[2021-12-08] MEDS: acetaminophen 325 mg Tablet 650 MG PO ×2 (09:54→20:30)
--- NOTE | 2021-12-08 10:52 | PC.NURSE ---
DENIES PAIN. DENIES HI AND AH AT THIS TIME. PT ENDORSES PASSING SUICIDAL THOUGHTS WITH NO ACTIVE PLAN AT THIS TIME. PT ALSO REPORTS HE SEES THINGS IN THE WINDOW, LIKE WORMS. PT WAS CONTRACTED FOR SAFETY DUE TO SUICIDAL THOUGHTS. SUPPORT VOICED.
[2021-12-08 14:00] VITALS: BP 120/76; PULSE 76; RESP 14; TEMP 36.7; O2SAT 98
--- NOTE | 2021-12-08 16:34 | P.NPUPN_ITS ---
Subjective NPU Subjective: Today reporting that he feels better than when he got here but still does not feel great. We discussed his medications which I have reviewed and identified that his Seroquel was just increased last night and that his Cymbalta was increased 3 days prior. We agreed with stated course and have another discussion tomorrow. He is working with the treatment team on possible discharge options. At this point we discussed [facility] as a possibility given his background. Mental Status Exam MSE Comments: The well-nourished well-developed white male in hospital scrubs with adequate grooming and limited eye contact. No abnormal movements except for psychomotor retardation. Cooperative with exam in mild distress. Speech was decreased rate and volume. Mood described as still somewhat depressed, affect congruent. Thought process organized thought content: Patient endorsed suicidal thoughts but denied homicidal ideation, some paranoia described and he did seem somewhat guarded, he denied auditory visual hallucinations. Attention and concentration were intact and memory appeared reliable but none were formally tested. He is alert and oriented x3. Insight appears fair, judgment limited and impulse control poor. Vitals/I&O/Wt Last Vital Signs Temp 98.3 F 12/08/21 20:40 Pulse 63 12/08/21 20:40 Resp 16 12/08/21 20:40 BP 126/81 12/08/21 20:40 Pulse Ox 96 12/08/21 20:40 O2 Del Method 12/08/21 20:40 Data NPU : 12/02/21 16:00 12/02/21 16:00 A&P Assessment and plan (1) Major depressive disorder: Status: Acute (2) Suicidal ideation: Status: Acute Plan Patient is a 56-year-old white male currently reporting severe psychosocial stressors with worsening depression since he stopped his medications and outpatient counseling. 1.? Continue Cymbalta 60mg to target depression and anxiety and seroquel 200mg at night for adjunctive treatment of major depression. 2.? Encourage individual, group and milieu therapy 3.? Continue q-15 minute check for safety 4. BERNARD evaluation completed to access ability to live independently-through Occupational therapy, patient likely would benefit from case management services requiring help in various situations per evaluation. 5. Patient likely to go to [facility] on discharge, needs active follow up with psychotherapy and psychiatrist on outpatient level. Involuntary Hold Information 96 Hour Hold: 96 Hour Involuntary Admission: No Attestations NPU Medical Necessity Statement*: Inpatient hospitalization is medically necessary and the clinically appropriate intervention at this time. We will monitor medications and make changes as indicated. Patient's likely length of stay is 2- 4 days. Coding Level of Care Code Acute Recruiting Assistant for [facility] Fwd Diagnoses Major depressive disorder F32.9 Suicidal ideation R45.851
[2021-12-08 20:40] VITALS: BP 126/81; PULSE 63; RESP 16; TEMP 36.8; O2SAT 96
[2021-12-08] MEDS: quetiapine 100 mg Tablet 200 MG PO (21:49)
[2021-12-09 06:00] VITALS: BP 106/73; PULSE 72; RESP 16; TEMP 36.6; O2SAT 96
[2021-12-09] MEDS: duloxetine 60 mg Capsule PO (11:17)
[2021-12-09 14:00] VITALS: BP 123/85; PULSE 75; RESP 20; TEMP 36.6; O2SAT 96
--- NOTE | 2021-12-09 14:53 | P.NPUPN_ITS ---
Subjective NPU Subjective: Patient presents today reporting that things are going okay. He endorsed having some ongoing depression. He was feeling very frustrated because he does not have a clear place to go and he still having some depression. We discussed the possibility of increasing his Cymbalta to 90 mg versus waiting. We are working with him to find an option for discharge and at this point the greatest likelihood is that [facility]. We we discussed the possibility of discharge over the weekend as we have open communication with him if he does have improvement in his mood. Mental Status Exam MSE Comments: The well-nourished well-developed white male in hospital scrubs with adequate grooming and limited eye contact. No abnormal movements except for psychomotor retardation. Cooperative with exam in mild to moderate distress. Speech was decreased rate and volume. Mood described as still depressed, affect congruent. Thought process organized thought content: Patient endorsed suicidal thoughts but denied homicidal ideation, some paranoia described and he did seem somewhat guarded, he denied auditory visual hallucinations. Attention and concentration were intact and memory appeared reliable but none were formally tested. He is alert and oriented x3. Insight appears fair, judgment limited and impulse control poor. Vitals/I&O/Wt Last Vital Signs Temp 97.9 F 12/09/21 06:00 Pulse 72 12/09/21 06:00 Resp 16 12/09/21 06:00 BP 106/73 12/09/21 06:00 Pulse Ox 96 12/09/21 06:00 O2 Del Method 12/09/21 06:00 Data NPU : 12/02/21 16:00 12/02/21 16:00 A&P Assessment and plan (1) Major depressive disorder: Status: Acute (2) Suicidal ideation: Status: Acute Plan Patient is a 56-year-old white male currently reporting severe psychosocial stressors with worsening depression since he stopped his medications and outpatient counseling. 1.? Continue Cymbalta 60mg to target depression and anxiety with plan to to 90 mg total and seroquel 200mg at night for adjunctive treatment of major depression. 2.? Encourage individual, group and milieu therapy 3.? Continue q-15 minute check for safety 4. BERNARD evaluation completed to access ability to live independently-through Occupational therapy, patient likely would benefit from case management services requiring help in various situations per evaluation. 5. Patient likely to go to homeless correction on discharge, needs active follow up with psychotherapy and psychiatrist on outpatient level. Involuntary Hold Information 96 Hour Hold: 96 Hour Involuntary Admission: No Attestations NPU Medical Necessity Statement*: Inpatient hospitalization is medically necessary and the clinically appropriate intervention at this time. We will monitor medications and make changes as indicated. Patient's likely length of stay is 1- 3 days. Coding Level of Care Code Acute Machine Precision Etcher for Letty Peña Diagnoses Major depressive disorder F32.9 Suicidal ideation R45.852
[2021-12-09] MEDS: acetaminophen 325 mg Tablet 650 MG PO (15:39)
--- NOTE | 2021-12-09 15:45 | PC.NURSE ---
Patient with c/o headache rated 5. Tylenol 650 mg po given for this.
[2021-12-09 20:00] VITALS: BP 131/83; PULSE 59; RESP 17; O2SAT 94
[2021-12-09] MEDS: quetiapine 100 mg Tablet 200 MG PO (21:41)
[2021-12-10 06:00] VITALS: BP 119/79; PULSE 66; RESP 16; O2SAT 95
[2021-12-10] MEDS: duloxetine 60 mg Capsule PO (08:23)
--- NOTE | 2021-12-10 10:45 | W.PM.NPUPNS ---
Subjective NPU Subjective: Patient presents today continuing to really struggle with being overwhelmed. We spoke at length about some of the challenges including legal challenges, financial challenges grief about not being able to keep his dogs that have led to him being in his overwhelmed state. We talked about the importance of him having acceptance about where he is at this moment and focusing his energy on moving forward and not past losses. Discussed the risk benefits and alternatives of increasing his Cymbalta and he understood and agreed to proceed as is documented in this note. Mental Status Exam MSE Comments: The well-nourished well-developed white male in hospital scrubs with adequate grooming and limited eye contact. No abnormal movements except for psychomotor retardation. Cooperative with exam in mild to moderate distress. Speech was decreased rate and volume. Mood described as still depressed, affect congruent. Thought process organized thought content: Patient endorsed suicidal thoughts but denied homicidal ideation, some paranoia described and he did seem somewhat guarded, he denied auditory visual hallucinations. Attention and concentration were intact and memory appeared reliable but none were formally tested. He is alert and oriented x3. Insight appears fair, judgment limited and impulse control poor. Vitals/I&O/Wt Last Vital Signs Temp 98 F 12/09/21 14:00 Pulse 59 L 12/09/21 20:00 Resp 17 12/09/21 20:00 BP 131/83 12/09/21 20:00 Pulse Ox 94 12/09/21 20:00 O2 Del Method 12/09/21 06:00 Data NPU : 12/02/21 16:00 12/02/21 16:00 A&P Assessment and plan (1) Major depressive disorder: Status: Acute (2) Suicidal ideation: Status: Acute Plan Patient is a 56-year-old white male currently reporting severe psychosocial stressors with worsening depression since he stopped his medications and outpatient counseling. 1.?Increase Cymbalta to 90 mg to target depression and anxiety and continue seroquel 200mg at night for adjunctive treatment of major depression. 2.? Encourage individual, group and milieu therapy 3.? Continue q-15 minute check for safety 4. BERNARD evaluation completed to access ability to live independently-through Occupational therapy, patient likely would benefit from case management services requiring help in various situations per evaluation. 5. Patient likely to go to homeless detention on discharge, needs active follow up with psychotherapy and psychiatrist on outpatient level. Involuntary Hold Information 96 Hour Hold: 96 Hour Involuntary Admission: No Attestations NPU Medical Necessity Statement*: Inpatient hospitalization is medically necessary and the clinically appropriate intervention at this time. We will monitor medications and make changes as indicated. Patient's likely length of stay is 1-3 days. Coding Level of Care Code Acute Director Of Epidemiology for [facility] Fwd Diagnoses Major depressive disorder F32.9 Suicidal ideation R45.851
[2021-12-10 14:00] VITALS: BP 122/73; PULSE 74; RESP 18; TEMP 36.8; O2SAT 97
[2021-12-10 20:38] VITALS: BP 120/81; PULSE 78; RESP 16; TEMP 36.7
[2021-12-10] MEDS: quetiapine 100 mg Tablet 200 MG PO (21:20)
[2021-12-10 22:00] VITALS: BP 120/81; PULSE 78; RESP 16; TEMP 36.7
[2021-12-11 05:57] VITALS: BP 116/79; PULSE 75; RESP 16; TEMP 36.6; O2SAT 96
[2021-12-11 06:00] VITALS: BMI 21.3
[2021-12-11] MEDS: duloxetine 30 mg Capsule 90 MG PO (08:14)
[2021-12-11] MEDS: acetaminophen 325 mg Tablet 650 MG PO (13:27)
[2021-12-11 14:00] VITALS: BP 124/80; PULSE 72; RESP 18; TEMP 36.6; O2SAT 98
--- NOTE | 2021-12-11 16:39 | W.PM.NPUPNS ---
Subjective NPU Subjective: Patient presents today continuing to be in the struggle about being stuck in a feedback loop about some of the issues at times. 1 particularly is related to the retail product demo specialist overseeing his case and the situation with his social security etc. We continued to discuss him being locked in focus on the past causing him emotional stress and not allowing him to focus on what is necessary to move forward. 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 Mental Status Exam MSE Comments: The well-nourished well-developed white male in hospital scrubs with adequate grooming and limited eye contact. No abnormal movements except for psychomotor retardation. Cooperative with exam in mild to moderate distress. Speech was decreased rate and volume. Mood described as still depressed, affect congruent. Thought process organized thought content: Patient endorsed less suicidal thoughts but still endorsed passive wish and endorsed some homicidal ideation, some paranoia described and he did seem somewhat guarded, he denied auditory visual hallucinations. Attention and concentration were intact and memory appeared reliable but none were formally tested. He is alert and oriented x3. Insight appears fair, judgment limited and impulse control poor. Vitals/I&O/Wt Last Vital Signs Temp 98.5 F 12/11/21 20:17 Pulse 64 12/11/21 20:17 Resp 18 12/11/21 20:17 BP 131/82 12/11/21 20:17 Pulse Ox 93 12/11/21 20:17 O2 Del Method 12/11/21 14:00 Weight last 48 hrs Weight 67.495 kg Data NPU : 12/02/21 16:00 12/02/21 16:00 A&P Assessment and plan (1) Major depressive disorder: Status: Acute (2) Suicidal ideation: Status: Acute Plan Patient is a 56-year-old white male currently reporting severe psychosocial stressors with worsening depression since he stopped his medications and outpatient counseling. 1.?Increased Cymbalta to 90 mg to target depression and anxiety and continue seroquel 200mg at night for adjunctive treatment of major depression. 2.? Encourage individual, group and milieu therapy 3.? Continue q-15 minute check for safety 4. BERNARD evaluation completed to access ability to live independently-through Occupational therapy, patient likely would benefit from case management services requiring help in various situations per evaluation. 5. Patient likely to go to homeless nursing home on discharge, needs active follow up with psychotherapy and psychiatrist on outpatient level. Involuntary Hold Information 96 Hour Hold: 96 Hour Involuntary Admission: No Attestations NPU Medical Necessity Statement*: Inpatient hospitalization is medically necessary and the clinically appropriate intervention at this time. We will monitor medications and make changes as indicated. Patient's likely length of stay is 1-3 days. Coding Level of Care Code Acute Supervisor Coke Handling for g Fwd Diagnoses Major depressive disorder F32.9 Suicidal ideation R45.851
[2021-12-11 20:17] VITALS: BP 131/82; PULSE 64; RESP 18; TEMP 36.9; O2SAT 93
[2021-12-11] MEDS: quetiapine 100 mg Tablet 200 MG PO (21:38)
[2021-12-12 06:00] VITALS: BP 119/78; PULSE 69; RESP 16; TEMP 36.8; O2SAT 97
[2021-12-12] MEDS: duloxetine 30 mg Capsule 90 MG PO (08:56)
--- NOTE | 2021-12-12 11:09 | DCPLANNER ---
IMM completed on 12/12/21 @ 1107am. Pt was given a copy of rights and he stated he understands his rights.
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
[2021-12-12 13:05] VITALS: BP 119/78; PULSE 69; RESP 16; TEMP 36.8; O2SAT 97
== END 2021-12-12 14:01 | disposition home or self-care (01) | DRG 881 ==
LOC: ER 17:48 → NP 12-03 00:01
PROVIDERS: Admitting Provider Psychiatry & Neurology Psychiatry; Emergency Provider Physician Assistant; Visit Provider Psychiatry & Neurology Psychiatry
DX: F32.9 Major depressive disorder, single episode, unspecified (principal); R45.851 Suicidal ideations; Z91.51 Personal history of suicidal behavior; Z81.8 Family history of other mental and behavioral disorders; F41.9 Anxiety disorder, unspecified
CPT/HCPCS: 74176; 80053; 80306; 80307; 81003; 83690; 85025; 96361; 96374; 96375; 97150; 97165; 99285; J2270; J2405; J7030

== ENCOUNTER → 2022-01-30 14:45 | Outpatient (BNVA) | payer MEDICARE, MEDICAID, SELFPAY | PROVIDERS: Visit Provider Family Medicine | DX: G89.29 Other chronic pain (principal); M62.838 Other muscle spasm; F33.9 Major depressive disorder, recurrent, unspecified; G47.00 Insomnia, unspecified; F17.200 Nicotine dependence, unspecified, uncomplicated | CPT/HCPCS: 80053; 85025 ==

== ENCOUNTER → 2022-04-11 13:10 | Outpatient (BNVA) | payer OTHER, SELFPAY | PROVIDERS: Visit Provider Nurse Practitioner | DX: F33.9 Major depressive disorder, recurrent, unspecified (principal); Z79.899 Other long term (current) drug therapy | CPT/HCPCS: 80061; 83036 ==

== ENCOUNTER 2022-04-21 10:20 | Emergency (ER) | payer MEDICARE, MEDICAID, SELFPAY ==
[2022-04-13 16:42] VITALS: BP 126/78; BMI 22.4
[2022-04-21] VITALS (49 sets, daily range): BP systolic 105–136; BP diastolic 65–89; PULSE 51–88; RESP 18–47; TEMP 36.9; O2SAT 73–99; BMI 22.2
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
--- NOTE | 2022-04-21 10:42 | CT_ITS ---
WS: [id number] CT HEAD NONCONTRAST HISTORY: headache TECHNIQUE: Contiguous axial imaging performed through the brain in 2.5 mm imaging. Bone and soft tiss ue windows. Sagittal and coronal reformats reviewed. All CT scans at [facility] use at least one of these dose optimization techniques: automated exposure control; mA and/or kV adjustment per pa tient size (includes targeted exams where dose is matched to clinical indication); or iterative recon struction. DLP: 1433.01 mGy.cm COMPARISON: 11/04/2008 No acute intracranial hemorrhage, midline shift or mass effect. No focal area of decreased attenuation in the posterior LEFT parietal lobe measures 10 x 18 mm and ex tends over length of 17 mm. No associated hemorrhage. Ventricles: Normal size with no hydrocephalus. No inferior displacement of the cerebellar tonsils. Paranasal sinuses: Mucoperiosteal thickening LEFT maxillary sinus. Mastoid air cells: Small amount of fluid in the LEFT mastoid air cells. Calvarium and scalp: Skull is intact with no soft tissue edema or swelling. CT/CT head wo con* [id number] IMPRESSION: 1. No acute intracranial hemorrhage or edema. 2. There is a new low-attenuation lesion in the posterior LEFT parietal lobe i nvolving the cortex. This may be a prior infarct which is new since 2008. Low-g rade neoplasm is not excluded. Recommend nonemergent follow-up MRI brain with c ontrast.
--- NOTE | 2022-04-21 10:42 | CT_ITS ---
WS: [id number] CT CERVICAL SPINE HISTORY: pain TECHNIQUE: Contiguous 2.5 mm axial imaging performed through the entire cervical spine. Sagittal and coronal reformats also performed. All CT scans at [facility] use at least one of these dose o ptimization techniques: automated exposure control; mA and/or kV adjustment per patient size (include s targeted exams where dose is matched to clinical indication); or iterative reconstruction. DLP: 1433.01 mGy.cm COMPARISON: 05/13/2020 Straightening of the normal cervical lordosis. Very minimal anterolisthesis of C5. Disc spaces are na rrowed throughout. Facet joints are narrowed. Fusion across the RIGHT facet joints at C4-5 and on the LEFT at C3-4. Craniocervical junction is normal. C1 and C2 are normally aligned. Mild RIGHT curvatur e of the cervical spine. C2-C3: Mild LEFT facet joint arthritis and foraminal narrowing. C3-C4: Severe bilateral facet joint arthritis with foraminal stenosis. C4-C5: Severe bilateral facet joint arthritis. Foraminal stenosis. C5-C6: Severe LEFT and mild RIGHT foraminal stenosis. Severe LEFT foraminal stenosis. C6-C7: Marked osteophytic ridging and bilateral facet joint arthritis. Mild central and moderate fora elli stenosis. C7-T1: Mild foraminal narrowing. Soft tissues are normal. Lung apices are clear. CT/CT cervical spin wo con* [id number] IMPRESSION: 1. No acute cervical spine fracture. 2. Advanced degenerative facet joint arthritis as described above. 3. RIGHT cervical curvature.
[2022-04-21] MEDS: ketorolac 30 mg/mL INJ IVP (11:35)
[2022-04-21] MEDS: promethazine 25 mg/mL SDV 1 mL IM (11:36)
[2022-04-21] MEDS: carBAMazepine 200 mg Tablet PO (11:36)
[2022-04-21] MEDS: sodium chloride 0.9% 1,000 ML 999 ML IV (11:36)
[2022-04-21 12:27] LABS: Basophils % 0.2 %; Hematocrit 45.5 % (42.0-52.0); Hemoglobin 15.2 g/dL (11.7-16.6); Lymphocytes # 0.3 10^3/uL (0.8-4.8); Lymphocytes % 4.8 %; Mean Corpuscular HGB Conc 33.4 g/dL (30.0-36.0); Mean Corpuscular Hemoglobin 31.3 pg (28.0-34.0); Mean Corpuscular Volume 93.8 fl (80-94); Mean Platelet Volume 10.9 fL (7.4-10.4); Monocytes # 0.4 10^3/uL (0.2-0.9); Monocytes % 6.5 %; Neutrophils # 5.85 10^3/uL (1.8-7.7); Neutrophils % 88.3 %; Nucleated Red Blood Cells % 0 %; Platelet Count 180 10^3/cmm (130-400); Red Blood Count 4.85 10^6/uL (4.1-5.3); White Blood Count 6.6 10^3/uL (4.0-10.0)
[2022-04-21 12:39] LABS: Alanine Aminotransferase 12 U/L (0-41); Albumin Level 4.3 g/dL (3.5-5.2); Alkaline Phosphatase 98 U/L (40-130); Anion Gap 15.1 (5-19); Aspartate Amino Transferase 16 U/L (0-40); Blood Urea Nitrogen 14 mg/dL (6-20); Calcium 9.4 mg/dL (8.5-10.5); Carbon Dioxide 25 mmol/L (22-29); Chloride 97 mmol/L (98-107); Creatinine Clr Calc Pharmacy 84.9089; Globulin 2.9 g/dL (1.3-4.6); Glomerular Filtration Rate 77.6 mL/min (90-130); Glucose 110 mg/dL (65-115); Osmolality Calculated 277 mOsm/kg (285-295); Potassium 4.1 mmol/L (3.5-5.1); Sodium 133 mmol/L (136-145); Total Bilirubin 0.6 mg/dL (0.15-1.2); Total Protein 7.2 g/dL (6.6-8.7)
--- NOTE | 2022-04-21 13:33 | CT_ITS ---
WS: [id number] CT ANGIOGRAM CEREBRAL AND CAROTID ARTERIES HISTORY: facial pain TECHNIQUE: CT angiogram is performed of the carotid and cerebral arteries. During arterial injection imaging is obtained from the skull vertex to the aortic arch in 1.0 mm imaging. Coronal and sagittal reformats are submitted. Additional multi planar reformats of the carotid and cerebral arteries are s ubmitted, MIP imaging also reviewed. NASCET criteria utilized. All CT scans at [facility] use at least one of these dose optimization techniques: automated exposure control; mA and/or kV adjustm ent per patient size (includes targeted exams where dose is matched to clinical indication); or itera tive reconstruction. CONTRAST: Omnipaque 350; 95 mL IV. DLP: 489.69 mGy.cm COMPARISON: None available. Carotid Angiogram: Right carotid: Common carotid artery: Arises normally from the innominate artery. No significant plaque or stenosis. Internal carotid artery: No plaque or stenosis. External carotid artery: Patent. Left carotid: Common carotid artery: Arises normally from the aorta. No significant plaque or stenosis. Internal carotid artery: No plaque or stenosis. External carotid artery: Patent. Right vertebral artery: Unremarkable. Left vertebral artery: Unremarkable. Arises normally from the subclavian artery. Subclavian arteries: No stenosis or significant abnormality. Upper thorax: Mild paraseptal emphysema. Thyroid gland: Normal. Osseous structures: Unremarkable. CEREBRAL ANGIOGRAM: Intracranial vertebral arteries: Normal with no significant atherosclerosis. Basilar artery: No significant stenosis or occlusion. No aneurysm. Intracranial Internal carotid arteries: Demonstrates no significant stenosis or plaque. Middle cerebral arteries: Normal. Anterior cerebral arteries and ACOM: Normal. Posterior cerebral arteries and PCOM's: Normal. Dural venous sinuses are normally enhancing. Mastoid air cells: Normal. Paranasal sinuses: Mild mucoperiosteal thickening LEFT maxillary sinus. Calvarium: Normal. CT/CT angio headneck* [id number] IMPRESSION: 1. Normal carotid arteries. 2. Unremarkable [place].
[2022-04-21] MEDS: iohexol 350 mg/mL 500 mL Btl (per mL) IV (13:53)
--- NOTE | 2022-04-25 10:19 | DCPLANNER ---
Addendum entered by Clarita Truong 06/28/22 08:09: Patient had a follow up appointment scheduled with neurology - patient did not attend appointment. Addendum entered by Clarita Truong 04/26/22 10:25: Patient has a follow up appointment scheduled for Monday, June 13, 2022 at 12:[address] Odonnell at neurology. Clinic will call patient with appointment information. Original Note: manager utilities had message to schedule a follow up appointment for patient with neurology. manager utilities sent patients information to the front office staff at neurology. Patients information will be printed and reviewed. Clinic will call patient with appointment information.
== END 2022-04-21 14:46 | disposition home or self-care (01) ==
PROVIDERS: Emergency Provider Family Medicine
DX: G50.0 Trigeminal neuralgia (principal); F17.210 Nicotine dependence, cigarettes, uncomplicated
CPT/HCPCS: 70450; 70496; 70498; 72125; 80053; 85025; 86140; 96372; 96374; 99285; J1885; J2550; J7030; Q9967